=== PATIENT | male | born 1955 | race Caucasian/White ===

== ENCOUNTER 2024-11-20 17:36 | Observation (INO) | payer OTHER ==
[2024-11-20 18:00] VITALS: BMI 37.1
[2024-11-20 20:01] LABS: MCHC 31.7 g/dl (32.3-36.5); MEAN CELL VOLUME 87.2 fl (79.0-92.2); MEAN PLT VOLUME 12.1 fl (9.4-12.4); RDW 14.6 % (12.2-16.4)
[2024-11-20 20:09] LABS: INR 1.04 (0.83-1.09); PROTHROMBIN TIME (PATIENT) 11.4 SEC (9.7-13.0)
[2024-11-20 20:12] LABS: ACTIVATED PTT 27.6 SECONDS (25.2-36.5)
[2024-11-20 21:10] LABS: CO2 25.0 mmol/L (21-32); GLUCOSE,RANDOM 109.0 mg/dL (74-106)
[2024-11-20 21:13] LABS: CREATININE 0.9 mg/dL (0.55-1.3); SGOT/AST 20.0 U/L (15-37)
[2024-11-20 21:14] LABS: SGPT/ALT 31.0 U/L (13-61); TOT PROT 6.2 g/dl (6.4-8.2)
[2024-11-20 21:16] LABS: ALK PHOS 65.0 U/L (45-117)
[2024-11-21] MEDS ORDERED: PATIENT'S OWN MEDICATION (NON-FORMULARY) (Etanercept [Enbrel] 50 MG/ML Syringe) SQ SCH (03:15)
[2024-11-21 06:08] LABS: CO2 29.0 mmol/L (21-32); GLUCOSE,RANDOM 103.0 mg/dL (74-106)
[2024-11-21 06:11] LABS: CREATININE 0.8 mg/dL (0.55-1.3); SGOT/AST 13.0 U/L (15-37); SGPT/ALT 27.0 U/L (13-61)
[2024-11-21 06:13] LABS: TOT PROT 5.8 g/dl (6.4-8.2)
[2024-11-21 06:14] LABS: ALK PHOS 61.0 U/L (45-117)
[2024-11-21 06:21] LABS: ABSOLUTE IMMATURE GRANULOCYTES 0.02 x10^3/uL (0.0-0.031); BASOPHILS # 0.01 x10^3/uL (0.01-0.08); EOSINOPHIL % 1.1 % (0.8-7.0); EOSINOPHILS # 0.06 x10^3/uL (0.04-0.54); MCHC 31.8 g/dl (32.3-36.5); MEAN CELL VOLUME 87.8 fl (79.0-92.2); MEAN PLT VOLUME 12.8 fl (9.4-12.4); MONOCYTE # 0.57 x10^3/uL (0.30-0.82); MONOCYTE % 10.6 % (5.3-12.2); RDW 14.8 % (12.2-16.4)
[2024-11-21 06:48] LABS: HIV INTERPRETATION NEGATIVE (NEGATIVE)
[2024-11-21 06:49] LABS: HCV DIAGNOSTIC IN-HOUSE W/RFLX NON-REACTIVE (NONREACTIVE)
[2024-11-21] MEDS ORDERED: LISINOPRIL 5 MG TABLET ONE (09:06)
[2024-11-21] MEDS ORDERED: MAGNESIUM SULFATE IN WATER 2 GM/50 ML IVPB IVPB ONE (09:06)
[2024-11-21] MEDS ORDERED: ENOXAPARIN NA (PORCINE) 40 MG/0.4 ML DISP.SYRIN SQ ONE (09:06)
[2024-11-21] MEDS ORDERED: INSULIN (NOVOLOG MIX 70/30) 100 UNITS/ML MDV SQ ONE (09:07)
[2024-11-21] MEDS: LISINOPRIL 5 MG TABLET PO SCH (09:09)
[2024-11-21] MEDS: ENOXAPARIN NA (PORCINE) 40 MG/0.4 ML DISP.SYRIN SQ SCH (09:09)
[2024-11-21] MEDS: MAGNESIUM SULF 50% (8.12 MEQ/2 ML-1 GM VIAL) IVPB ONE (09:09)
[2024-11-21 10:33] VITALS: RESP 18
[2024-11-21] MEDS: INSULIN ASPART SLIDING SCALE (NOVOLOG) 1 VIAL SQ SCH (10:45)
[2024-11-21 14:36] VITALS: BP 126/73; PULSE 62; TEMP 98.5
[2024-11-21] MEDS ORDERED: ATORVASTATIN CA 20 MG TABLET (FP) PO SCH (22:00)
[2024-11-22 09:31] LABS: LDL CHOLESTEROL (ONLY SJRH) 98.0 mg/dL (5-100)
== END 2024-11-21 17:10 | disposition home or self-care (01) ==
LOC: JER 17:36 → JERBED 21:21 → UNDOADMOB 21:21 → INTOOBSV 21:21 → OBSVTOIN 22:08 → JERBED 11-21 08:27
PROVIDERS: ADMIT Internal Medicine
PROC: 3E013VG Introduction of Insulin into Subcutaneous Tissue, Percutaneous Approach (ICD-10-PCS; principal; 2024-11-21)
PROC: 3E033GC Introduction of Other Therapeutic Substance into Peripheral Vein, Percutaneous Approach (ICD-10-PCS; 2024-11-21)
DX: R06.02 Shortness of breath (principal); R94.31 Abnormal electrocardiogram [ECG] [EKG]; R00.1 Bradycardia, unspecified; I10 Essential (primary) hypertension; R79.89 Other specified abnormal findings of blood chemistry; E77.8 Other disorders of glycoprotein metabolism; E66.01 Morbid (severe) obesity due to excess calories; E78.5 Hyperlipidemia, unspecified; E11.9 Type 2 diabetes mellitus without complications; M19.90 Unspecified osteoarthritis, unspecified site
CPT/HCPCS: 36415; 71045-TC-FY; 71275-TC; 80053; 80061; 82962; 83036; 83735; 83880; 84100; 84439; 84443; 84484; 85025; 85027; 85379; 85610; 85651; 85730; 86140; 86803; 87389; 93005; 93010; 93306-TC; 99291; G0378